=== PATIENT | male | born 1980 | race Caucasian/White ===

== ENCOUNTER 2017-03-14 09:37 | Emergency (ER) | payer OTHER, BC ==
[~2017-03-14] VITALS: Ht 175.3 cm; Wt 85.0 kg
[~2017-03-14 09:37] MED LIST: MERC50TA; MESA250; METR250; SULF1TAB47 PO; TYLE3 PO; ZITH250T PO
[2017-03-14 09:38] VITALS: BP 131/75; PULSE 70; RESP 18; TEMP 98.1; O2SAT 98
[2017-03-14] MEDS ORDERED: ROBA500T PO (10:26)
[2017-03-14] MEDS ORDERED: IBUP800T23 PO (10:26)
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
== END 2017-03-14 10:51 | disposition home or self-care (01) ==
LOC: NEPK 09:37
DX: S46.819A Strain of other muscles, fascia and tendons at shoulder and upper arm level, unspecified arm, initial encounter (principal); M54.2 Cervicalgia; Z87.19 Personal history of other diseases of the digestive system; V89.2XXA Person injured in unspecified motor-vehicle accident, traffic, initial encounter
CPT/HCPCS: 99283